=== PATIENT | female | born 1945 | race African-American/Black ===

== ENCOUNTER 2017-08-18 12:22 | Inpatient (IN) ==
[2017-08-18] MEDS ORDERED: ALBUTEROL/IPRATROPIUM 3 ML NEB RESP TX STA (15:08)
[2017-08-18] MEDS ORDERED: ASPIRIN 325 MG TABLET PO STA (15:25)
[2017-08-18] MEDS ORDERED: cefTRIAXone 1,000 MG in SODIUM CHLORIDE 0.9% 100 ML IV STA (15:25)
[2017-08-18] MEDS ORDERED: ONDANSETRON 4 MG/2 ML VIAL IV STA (15:25)
[2017-08-18] MEDS ORDERED: MORPHINE 2 MG/1 ML SYRINGE IV STA (15:25)
[2017-08-18] MEDS ORDERED: FUROSEMIDE 100 MG/10 ML VIAL IV STA (15:25)
[2017-08-18] MEDS ORDERED: methylPREDNISolone SOD SUC 125 MG/2 ML VIAL IV STA (15:25)
[2017-08-18] MEDS ORDERED: ALBUTEROL NEB SOLN 5 MG/ML 20 ML/BOTTLE RESP TX SCH (15:30)
[2017-08-18] MEDS ORDERED: FUROSEMIDE 20 MG/2 ML VIAL IV STA (15:47)
[2017-08-18 15:54] LABS: ABG Base Excess 1.1 MMOL/L (-2.5-2.5); ABG HCO3 25.4 MMOL/L (20-26); ABG Oxygen Saturation 99.4 % (95-100); ABG PCO2 45.3 MM HG (35-48); ABG PH 7.377 (7.35-7.45); ABG TCO2 23.9 MMOL/L (23-27)
[2017-08-18] MEDS ORDERED: ONDANSETRON 4 MG/2 ML VIAL ONE (16:13)
[2017-08-18] MEDS ORDERED: methylPREDNISolone SOD SUC 125 MG/2 ML VIAL ONE (16:13)
[2017-08-18] MEDS ORDERED: ASPIRIN 325 MG TABLET ONE (16:13)
[2017-08-18] MEDS ORDERED: MORPHINE 4 MG/1 ML VIAL ONE (16:13)
[2017-08-18] MEDS ORDERED: FUROSEMIDE 20 MG/2 ML VIAL ONE (16:13)
[2017-08-18] MEDS ORDERED: cefTRIAXone 1,000 MG VIAL ONE (16:13)
[2017-08-18 16:34] LABS: Basophils % 0.6 % (0.0-0.8); Eosinophils # 0.3 10*3/uL (0.0-0.87); Eosinophils % 4.5 % (0.00-10.9); Hematocrit 36.9 VOL% (35.7-47.0); Hemoglobin 11.5 GM/DL (12.0-16.0); Immature Granulocytes % 0.2 %; Immature Granulocytes Absolute 0.01 #; Lymphocytes # 2.2 10*3/uL (1.4-4.0); Lymphocytes % 35.6 % (21.3-54.2); Mean Corpuscular HGB Conc 31.2 GM/DL (32-36); Mean Corpuscular Hemoglobin 26 PG (27-34); Mean Corpuscular Volume 84.4 FL (87-102); Monocytes # 0.3 10*3/uL (0.11-0.8); Monocytes % 5.5 % (1.7-12.7); Neutrophils # 3.3 10*3/uL (1.4-7.4); Neutrophils % 53.6 % (38.7-73.9); Platelet Count 216 T/CUMM (130-400); Red Blood Count 4.37 MC/CUMM (3.8-5.5); Red Cell Distribution Width 15.6 % (9.3-17.3); White Blood Count 6.2 T/CUMM (4-12)
[2017-08-18 16:55] LABS: Alanine Aminotransferase 11 U/L (13-56); Albumin 3.5 G/DL (3.4-5.0); Alkaline Phosphatase 80 U/L (45-117); Aspartate Amino Transferase 18 U/L (0-37); Bilirubin,Total < 0.39 MG/DL (0.2-1.0); Blood Urea Nitrogen 11 MG/DL (7-18); Calcium 9.1 MG/DL (8.5-10.1); Glucose 75 MG/DL (74-106); Osmolality,Calculated 272.7 MOS/KG (273-304); Potassium 5.2 MMOL/L (3.5-5.1); Sodium 138 MMOL/L (136-145); Total Protein 7.9 G/DL (6.4-8.3); Troponin I Only < 0.015 NG/ML (0.00-0.045)
[2017-08-18 16:58] LABS: PT Patient Result 10.4 SECS
[2017-08-18 17:13] LABS: Apearance,Urine CLEAR (Clear); Bacteria,Urine Occasional /HPF (Few); Bilirubin,Urine Negative (Negative); Blood, Urine Negative (Negative); Glucose,Urine (UA) Negative (Negative); Ketones,Urine Negative (Negative); Mucus,Urine Occasional /LPF (Occasional); Nitrite,Urine Negative (Negative); Protein,Urine Negative; RBC,Urine 1 /HPF (0-4); Urine Color Straw (Yellow); Urine Specific Gravity 1.011 (1.001-1.035); Urine Urobilinogen < 2.0 EU/DL (0.2-1.0); WBC,Urine <1 /HPF (0-6)
[2017-08-18] MEDS ORDERED: ACETAMINOPHEN 325 MG TABLET PO PRN (17:39)
[2017-08-18] MEDS ORDERED: ALBUTEROL 2.5 MG/3 ML NEB RESP TX PRN (17:42)
[2017-08-18] MEDS: FLUTICASONE/SALMETEROL 500-50 DISKUS 14 DOSE INH SCH (21:17)
[2017-08-18] MEDS: MAGNESIUM OXIDE 400 MG TABLET PO SCH (21:17)
[2017-08-18] MEDS: ATORVASTATIN 40 MG TABLET PO SCH (21:17)
[2017-08-18] MEDS: MONTELUKAST 10 MG TABLET PO SCH (21:17)
[2017-08-18] MEDS: FAMOTIDINE 20 MG TABLET PO SCH (21:17)
[2017-08-18] MEDS: CARVEDILOL 12.5 MG TABLET PO SCH (21:17)
[2017-08-18] MEDS: methylPREDNISolone SOD SUC 125 MG/2 ML VIAL IV SCH (21:18)
[2017-08-19] MEDS ORDERED: GLUCAGON 1 MG VIAL IM PRN (00:08)
[2017-08-19] MEDS ORDERED: DEXTROSE 50% 25 GM/50 ML VIAL IV PRN (00:08)
[2017-08-19] MEDS: ALBUTEROL/IPRATROPIUM 3 ML NEB RESP TX SCH ×4 (00:24→18:59)
[2017-08-19] MEDS: methylPREDNISolone SOD SUC 125 MG/2 ML VIAL IV SCH ×2 (03:41→10:20)
[2017-08-19 06:39] LABS: Basophils % 0.2 % (0.0-0.8); Hematocrit 32.1 VOL% (35.7-47.0); Hemoglobin 10.3 GM/DL (12.0-16.0); Immature Granulocytes % 0.4 %; Immature Granulocytes Absolute 0.02 #; Lymphocytes # 0.9 10*3/uL (1.4-4.0); Lymphocytes % 19.2 % (21.3-54.2); Mean Corpuscular HGB Conc 32.1 GM/DL (32-36); Mean Corpuscular Hemoglobin 26 PG (27-34); Mean Corpuscular Volume 82.1 FL (87-102); Mean Platelet Volume 9.8 FL (9.6-12.0); Monocytes % 0.6 % (1.7-12.7); Neutrophils # 3.8 10*3/uL (1.4-7.4); Neutrophils % 79.6 % (38.7-73.9); Platelet Count 258 T/CUMM (130-400); Red Blood Count 3.91 MC/CUMM (3.8-5.5); Red Cell Distribution Width 15.4 % (9.3-17.3); White Blood Count 4.8 T/CUMM (4-12)
[2017-08-19 07:05] LABS: Calcium 8.9 MG/DL (8.5-10.1); Osmolality,Calculated 278.8 MOS/KG (273-304); Potassium 4.4 MMOL/L (3.5-5.1)
[2017-08-19] MEDS: INSULIN REGULAR 100 UNIT/ML SUBCUT SCH ×4 (07:54→21:02)
[2017-08-19] MEDS: FAMOTIDINE 20 MG TABLET PO SCH ×2 (10:25→21:02)
[2017-08-19] MEDS: FLUTICASONE/SALMETEROL 500-50 DISKUS 14 DOSE INH SCH ×2 (10:25→21:02)
[2017-08-19] MEDS: MAGNESIUM OXIDE 400 MG TABLET PO SCH ×2 (10:25→21:01)
[2017-08-19] MEDS: DILTIAZEM CD 120 MG CAPSULE PO SCH (10:25)
[2017-08-19] MEDS: CARVEDILOL 12.5 MG TABLET PO SCH ×2 (10:25→18:13)
[2017-08-19] MEDS: SOLIFENACIN 5 MG TABLET PO SCH (10:25)
[2017-08-19] MEDS: LEVOFLOXACIN INJ 500 MG in PREMIX 1 EACH IV SCH (10:25)
[2017-08-19] MEDS: LISINOPRIL 20 MG TABLET PO SCH (10:26)
[2017-08-19] MEDS: ASPIRIN EC 81 MG TABLET PO SCH (10:26)
[2017-08-19] MEDS: CALCIUM (CARBONATE) 500 MG TABLET PO SCH (10:26)
[2017-08-19] MEDS: FUROSEMIDE 20 MG TABLET PO SCH (10:26)
[2017-08-19] MEDS: methylPREDNISolone SOD SUC 40 MG/1 ML VIAL IV SCH ×3 (10:26→22:40)
[2017-08-19] MEDS: ATORVASTATIN 40 MG TABLET PO SCH (21:01)
[2017-08-19] MEDS: MONTELUKAST 10 MG TABLET PO SCH (21:01)
[2017-08-20] MEDS: ALBUTEROL/IPRATROPIUM 3 ML NEB RESP TX SCH ×4 (01:10→19:30)
[2017-08-20] MEDS: methylPREDNISolone SOD SUC 40 MG/1 ML VIAL IV SCH (05:26)
[2017-08-20 06:16] LABS: Hematocrit 30.1 VOL% (35.7-47.0); Hemoglobin 9.7 GM/DL (12.0-16.0); Immature Granulocytes % 0.5 %; Immature Granulocytes Absolute 0.04 #; Lymphocytes % 12.6 % (21.3-54.2); Mean Corpuscular HGB Conc 32.2 GM/DL (32-36); Mean Corpuscular Hemoglobin 27 PG (27-34); Mean Corpuscular Volume 82.2 FL (87-102); Mean Platelet Volume 10.4 FL (9.6-12.0); Monocytes # 0.2 10*3/uL (0.11-0.8); Monocytes % 2.7 % (1.7-12.7); Neutrophils # 6.8 10*3/uL (1.4-7.4); Neutrophils % 84.2 % (38.7-73.9); Platelet Count 271 T/CUMM (130-400); Red Blood Count 3.66 MC/CUMM (3.8-5.5); Red Cell Distribution Width 15.2 % (9.3-17.3); White Blood Count 8.1 T/CUMM (4-12)
[2017-08-20 06:55] LABS: Calcium 8.6 MG/DL (8.5-10.1); Osmolality,Calculated 284.7 MOS/KG (273-304); Potassium 4.1 MMOL/L (3.5-5.1)
[2017-08-20] MEDS: LISINOPRIL 20 MG TABLET PO SCH (09:05)
[2017-08-20] MEDS: DILTIAZEM CD 120 MG CAPSULE PO SCH (09:05)
[2017-08-20] MEDS: SOLIFENACIN 5 MG TABLET PO SCH (09:05)
[2017-08-20] MEDS: MAGNESIUM OXIDE 400 MG TABLET PO SCH ×2 (09:05→20:40)
[2017-08-20] MEDS: FAMOTIDINE 20 MG TABLET PO SCH ×2 (09:05→20:40)
[2017-08-20] MEDS: INSULIN REGULAR 100 UNIT/ML SUBCUT SCH ×4 (09:06→20:40)
[2017-08-20] MEDS: ASPIRIN EC 81 MG TABLET PO SCH (09:06)
[2017-08-20] MEDS: FUROSEMIDE 20 MG TABLET PO SCH (09:06)
[2017-08-20] MEDS: CALCIUM (CARBONATE) 500 MG TABLET PO SCH (09:06)
[2017-08-20] MEDS: CARVEDILOL 12.5 MG TABLET PO SCH ×2 (09:06→17:25)
[2017-08-20] MEDS: FLUTICASONE/SALMETEROL 500-50 DISKUS 14 DOSE INH SCH ×2 (09:10→20:44)
[2017-08-20] MEDS ORDERED: methylPREDNISolone SOD SUC 40 MG/1 ML VIAL IV SCH (10:00)
[2017-08-20] MEDS: LEVOFLOXACIN INJ 500 MG in PREMIX 1 EACH IV SCH (10:29)
[2017-08-20] MEDS: ATORVASTATIN 40 MG TABLET PO SCH (18:48)
[2017-08-20] MEDS: MONTELUKAST 10 MG TABLET PO SCH (18:48)
[2017-08-21] MEDS: ALBUTEROL/IPRATROPIUM 3 ML NEB RESP TX SCH ×4 (01:58→20:21)
[2017-08-21] MEDS: FUROSEMIDE 20 MG TABLET PO SCH (09:10)
[2017-08-21] MEDS: DILTIAZEM CD 120 MG CAPSULE PO SCH (09:10)
[2017-08-21] MEDS: SOLIFENACIN 5 MG TABLET PO SCH (09:10)
[2017-08-21] MEDS: MAGNESIUM OXIDE 400 MG TABLET PO SCH ×2 (09:11→21:03)
[2017-08-21] MEDS: LISINOPRIL 20 MG TABLET PO SCH (09:11)
[2017-08-21] MEDS: ASPIRIN EC 81 MG TABLET PO SCH (09:11)
[2017-08-21] MEDS: predniSONE 20 MG TABLET PO SCH (09:11)
[2017-08-21] MEDS: CARVEDILOL 12.5 MG TABLET PO SCH ×3 (09:11→17:55)
[2017-08-21] MEDS: FAMOTIDINE 20 MG TABLET PO SCH ×2 (09:11→21:03)
[2017-08-21] MEDS: CALCIUM (CARBONATE) 500 MG TABLET PO SCH (09:11)
[2017-08-21] MEDS: FLUTICASONE/SALMETEROL 500-50 DISKUS 14 DOSE INH SCH ×2 (09:12→21:03)
[2017-08-21] MEDS: INSULIN REGULAR 100 UNIT/ML SUBCUT SCH ×4 (09:12→21:04)
[2017-08-21] MEDS: LEVOFLOXACIN INJ 500 MG in PREMIX 1 EACH IV SCH (10:56)
[2017-08-21] MEDS: ATORVASTATIN 40 MG TABLET PO SCH (18:18)
[2017-08-21] MEDS: MONTELUKAST 10 MG TABLET PO SCH (18:18)
[2017-08-21] MEDS ORDERED: INSULIN GLARGINE 100 UNIT/ML SUBCUT SCH (21:00)
[2017-08-22 05:57] LABS: Basophils % 0.1 % (0.0-0.8); Eosinophils % 0.4 % (0.00-10.9); Hematocrit 30.4 VOL% (35.7-47.0); Hemoglobin 9.9 GM/DL (12.0-16.0); Immature Granulocytes % 0.6 %; Immature Granulocytes Absolute 0.05 #; Lymphocytes # 2.3 10*3/uL (1.4-4.0); Lymphocytes % 30.3 % (21.3-54.2); Mean Corpuscular HGB Conc 32.6 GM/DL (32-36); Mean Corpuscular Hemoglobin 26 PG (27-34); Mean Corpuscular Volume 80.4 FL (87-102); Mean Platelet Volume 10.1 FL (9.6-12.0); Monocytes # 0.8 10*3/uL (0.11-0.8); Monocytes % 10.8 % (1.7-12.7); Neutrophils # 4.5 10*3/uL (1.4-7.4); Neutrophils % 57.8 % (38.7-73.9); Platelet Count 293 T/CUMM (130-400); Red Blood Count 3.78 MC/CUMM (3.8-5.5); White Blood Count 7.7 T/CUMM (4-12)
[2017-08-22 06:16] LABS: Calcium 8.7 MG/DL (8.5-10.1); Osmolality,Calculated 281.4 MOS/KG (273-304); Potassium 3.7 MMOL/L (3.5-5.1)
[2017-08-22] MEDS: ALBUTEROL/IPRATROPIUM 3 ML NEB RESP TX SCH ×2 (07:15)
[2017-08-22] MEDS: INSULIN REGULAR 100 UNIT/ML SUBCUT SCH ×2 (07:41→12:50)
[2017-08-22] MEDS ORDERED: LISINOPRIL 20 MG TABLET PO SCH (09:00)
[2017-08-22] MEDS ORDERED: LEVOFLOXACIN 250 MG TABLET PO SCH (09:00)
[2017-08-22] MEDS: FLUTICASONE/SALMETEROL 500-50 DISKUS 14 DOSE INH SCH (09:08)
[2017-08-22] MEDS: SOLIFENACIN 5 MG TABLET PO SCH (09:08)
[2017-08-22] MEDS: FUROSEMIDE 20 MG TABLET PO SCH (09:09)
[2017-08-22] MEDS: DILTIAZEM CD 120 MG CAPSULE PO SCH (09:09)
[2017-08-22] MEDS: predniSONE 20 MG TABLET PO SCH (09:10)
[2017-08-22] MEDS: CARVEDILOL 12.5 MG TABLET PO SCH (09:10)
[2017-08-22] MEDS: FAMOTIDINE 20 MG TABLET PO SCH (09:10)
[2017-08-22] MEDS: CALCIUM (CARBONATE) 500 MG TABLET PO SCH (09:10)
[2017-08-22] MEDS: MAGNESIUM OXIDE 400 MG TABLET PO SCH (09:10)
[2017-08-22] MEDS: ASPIRIN EC 81 MG TABLET PO SCH (09:11)
[2017-08-22 11:29] VITALS: BP 146/90
== END 2017-08-22 14:00 | disposition home or self-care (01) | DRG 203 ==
LOC: N.ED 12:22 → N.EDINP 17:10 → SUATTDRO 17:10 → N.EDINP 18:30 → N.4E 18:52
PROVIDERS: ADMIT Internal Medicine Infectious Disease; ATTEND Internal Medicine

== ENCOUNTER 2018-02-03 13:26 | Inpatient (IN) ==
[2018-02-03 14:45] LABS: Basophils # 0.1 10*3/uL (0.0-0.2); Basophils % 0.9 % (0.0-0.8); Eosinophils # 0.5 10*3/uL (0.0-0.87); Eosinophils % 8.2 % (0.00-10.9); Hematocrit 36.7 VOL% (35.7-47.0); Hemoglobin 11.7 GM/DL (12.0-16.0); Immature Granulocytes % 0.2 %; Immature Granulocytes Absolute 0.01 #; Lymphocytes # 2.2 10*3/uL (1.4-4.0); Lymphocytes % 39.2 % (21.3-54.2); Mean Corpuscular HGB Conc 31.9 GM/DL (32-36); Mean Corpuscular Hemoglobin 26 PG (27-34); Mean Corpuscular Volume 80.7 FL (87-102); Mean Platelet Volume 10.1 FL (9.6-12.0); Monocytes # 0.5 10*3/uL (0.11-0.8); Monocytes % 8.6 % (1.7-12.7); Neutrophils # 2.5 10*3/uL (1.4-7.4); Neutrophils % 42.9 % (38.7-73.9); Platelet Count 322 T/CUMM (130-400); Red Blood Count 4.55 MC/CUMM (3.8-5.5); Red Cell Distribution Width 15.9 % (9.3-17.3); White Blood Count 5.7 T/CUMM (4-12)
[2018-02-03 14:53] LABS: PT Patient Result 10.7 SECS; Partial Thromboplastin Time 27.4 SECS (0-40)
[2018-02-03] MEDS ORDERED: LABETALOL 20 MG/4 ML SYRINGE IV ONE (14:58)
[2018-02-03] MEDS ORDERED: LABETALOL 20 MG/4 ML SYRINGE IV STA ×2 (15:05→15:42)
[2018-02-03 15:21] LABS: Alanine Aminotransferase 15 U/L (13-56); Albumin 3.5 G/DL (3.4-5.0); Alkaline Phosphatase 100 U/L (45-117); Aspartate Amino Transferase 14 U/L (0-37); Bilirubin,Total < 0.39 MG/DL (0.2-1.0); Blood Urea Nitrogen 12 MG/DL (7-18); Calcium 9.2 MG/DL (8.5-10.1); Glucose 76 MG/DL (74-106); Osmolality,Calculated 277.4 MOS/KG (273-304); Potassium 4.4 MMOL/L (3.5-5.1); Sodium 140 MMOL/L (136-145); Total Protein 7.9 G/DL (6.4-8.3)
[2018-02-03 16:37] LABS: Apearance,Urine CLEAR (Clear); Bilirubin,Urine Negative (Negative); Blood, Urine Negative (Negative); Glucose,Urine (UA) Negative (Negative); Ketones,Urine Negative (Negative); Mucus,Urine Occasional /LPF (Occasional); Nitrite,Urine Negative (Negative); Protein,Urine Negative; Urine Color Straw (Yellow); Urine Specific Gravity 1.011 (1.001-1.035); Urine Urobilinogen < 2.0 EU/DL (0.2-1.0); WBC,Urine <1 /HPF (0-6)
[2018-02-03 16:42] LABS: Barbiturates Screen,Urine Negative (Negative); Benzodiazepines Screen,Urine Negative (Negative); Cannabinoid Screen,Urine Negative (Negative); Opiate Screen,Urine Negative (Negative); Phencyclidine Screen,Urine Negative (Negative)
[2018-02-03] MEDS ORDERED: ASPIRIN EC 325 MG TABLET PO STA (18:26)
[2018-02-03] MEDS ORDERED: DEXTROSE 50% 25 GM/50 ML VIAL IV PRN (18:26)
[2018-02-03] MEDS ORDERED: ALBUTEROL 2.5 MG/3 ML NEB RESP TX PRN (18:26)
[2018-02-03] MEDS ORDERED: LABETALOL 100 MG/20 ML VIAL IV PRN (18:26)
[2018-02-03] MEDS ORDERED: GLUCAGON 1 MG VIAL IM PRN (18:26)
[2018-02-03] MEDS ORDERED: ACETAMINOPHEN 325 MG TABLET PO PRN (18:26)
[2018-02-03] MEDS ORDERED: ONDANSETRON 4 MG/2 ML VIAL IV PRN (18:26)
[2018-02-03] MEDS ORDERED: PNEUMOCOCCAL VACCINE (13 VALENT) 0.5 ML SYRINGE IM ONE (18:35)
[2018-02-03] MEDS: SODIUM CHLORIDE 0.45% 1,000 ML IV SCH (20:43)
[2018-02-03] MEDS: INSULIN REGULAR 100 UNIT/ML SUBCUT SCH (20:44)
[2018-02-03] MEDS: DIFLUPREDNATE 0.05% OPH EMUL 5 ML BOTTLE RIGHT EYE SCH (20:44)
[2018-02-03] MEDS: OFLOXACIN 0.3% OPH SOLN 10 ML BOTTLE RIGHT EYE SCH (20:44)
[2018-02-03] MEDS: KETOROLAC 0.5% OPH SOLN 3 ML BOTTLE RIGHT EYE SCH (20:44)
[2018-02-03] MEDS: hydrOXYzine HCL 10 MG TABLET PO SCH (20:45)
[2018-02-03] MEDS: ENOXAPARIN 40 MG/0.4 ML SYRINGE SUBCUT SCH (20:45)
[2018-02-04] MEDS: INSULIN REGULAR 100 UNIT/ML SUBCUT SCH ×4 (00:02→18:06)
[2018-02-04 00:06] LABS: Troponin I < 0.015 NG/ML (0.00-0.045)
[2018-02-04 01:49] LABS: Risk Ratio 1.91; VLDL CHOLESTEROL 11.8 MG/DL
[2018-02-04 04:21] LABS: Basophils # 0.1 10*3/uL (0.0-0.2); Basophils % 0.7 % (0.0-0.8); Eosinophils # 0.3 10*3/uL (0.0-0.87); Eosinophils % 3.8 % (0.00-10.9); Hematocrit 32.6 VOL% (35.7-47.0); Hemoglobin 10.3 GM/DL (12.0-16.0); Immature Granulocytes % 0.3 %; Immature Granulocytes Absolute 0.02 #; Lymphocytes # 3.4 10*3/uL (1.4-4.0); Lymphocytes % 44.6 % (21.3-54.2); Mean Corpuscular HGB Conc 31.6 GM/DL (32-36); Mean Corpuscular Hemoglobin 25 PG (27-34); Mean Corpuscular Volume 80.1 FL (87-102); Mean Platelet Volume 10.2 FL (9.6-12.0); Monocytes # 0.6 10*3/uL (0.11-0.8); Monocytes % 8.4 % (1.7-12.7); Neutrophils # 3.2 10*3/uL (1.4-7.4); Neutrophils % 42.2 % (38.7-73.9); Platelet Count 305 T/CUMM (130-400); Red Blood Count 4.07 MC/CUMM (3.8-5.5); Red Cell Distribution Width 15.8 % (9.3-17.3); White Blood Count 7.6 T/CUMM (4-12)
[2018-02-04 04:55] LABS: Calcium 8.6 MG/DL (8.5-10.1); Osmolality,Calculated 273.7 MOS/KG (273-304); Potassium 3.5 MMOL/L (3.5-5.1); Total Protein 6.9 G/DL (6.4-8.3); Troponin I < 0.015 NG/ML (0.00-0.045)
[2018-02-04] MEDS: MONTELUKAST 10 MG TABLET PO SCH (09:02)
[2018-02-04] MEDS: ASPIRIN EC 325 MG TABLET PO SCH (09:02)
[2018-02-04] MEDS: ATORVASTATIN 20 MG TABLET PO SCH (09:02)
[2018-02-04] MEDS: hydrOXYzine HCL 10 MG TABLET PO SCH ×3 (09:02→21:37)
[2018-02-04] MEDS: FLUTICASONE 50 MCG NASAL SPRAY 16 GM BOTTLE BOTH NARES SCH (09:03)
[2018-02-04] MEDS: SOLIFENACIN 5 MG TABLET PO SCH (09:03)
[2018-02-04] MEDS: OFLOXACIN 0.3% OPH SOLN 10 ML BOTTLE RIGHT EYE SCH ×4 (09:04→23:01)
[2018-02-04] MEDS: KETOROLAC 0.5% OPH SOLN 3 ML BOTTLE RIGHT EYE SCH ×4 (09:04→21:37)
[2018-02-04] MEDS: DIFLUPREDNATE 0.05% OPH EMUL 5 ML BOTTLE RIGHT EYE SCH ×4 (09:05→21:37)
[2018-02-04] MEDS: SODIUM CHLORIDE 0.45% 1,000 ML IV SCH ×2 (16:22→21:39)
[2018-02-04] MEDS ORDERED: hydrALAZINE 20 MG/1 ML VIAL IV PRN (17:21)
[2018-02-04] MEDS: ENOXAPARIN 40 MG/0.4 ML SYRINGE SUBCUT SCH (21:37)
[2018-02-04] MEDS: CARVEDILOL 12.5 MG TABLET PO SCH (21:37)
[2018-02-05] MEDS: INSULIN REGULAR 100 UNIT/ML SUBCUT SCH ×2 (00:05→05:29)
[2018-02-05] MEDS ORDERED: LISINOPRIL 20 MG TABLET PO SCH (09:00)
[2018-02-05] MEDS: ATORVASTATIN 20 MG TABLET PO SCH (09:21)
[2018-02-05] MEDS: SOLIFENACIN 5 MG TABLET PO SCH (09:21)
[2018-02-05] MEDS: CARVEDILOL 12.5 MG TABLET PO SCH (09:21)
[2018-02-05] MEDS: ASPIRIN EC 325 MG TABLET PO SCH (09:21)
[2018-02-05] MEDS: hydrOXYzine HCL 10 MG TABLET PO SCH (09:21)
[2018-02-05] MEDS: MONTELUKAST 10 MG TABLET PO SCH (09:21)
[2018-02-05] MEDS: FLUTICASONE 50 MCG NASAL SPRAY 16 GM BOTTLE BOTH NARES SCH (09:22)
[2018-02-05] MEDS: DIFLUPREDNATE 0.05% OPH EMUL 5 ML BOTTLE RIGHT EYE SCH (09:23)
[2018-02-05] MEDS: KETOROLAC 0.5% OPH SOLN 3 ML BOTTLE RIGHT EYE SCH (09:23)
[2018-02-05] MEDS: OFLOXACIN 0.3% OPH SOLN 10 ML BOTTLE RIGHT EYE SCH (09:24)
[2018-02-05 12:23] VITALS: BP 163/88
== END 2018-02-05 13:50 | disposition home health service (06) | DRG 69 ==
LOC: N.ED 13:26 → N.EDINP 17:08 → SUATTDRO 17:09 → N.TELES 17:34
PROVIDERS: ADMIT Internal Medicine; ATTEND Internal Medicine

== ENCOUNTER 2020-07-17 09:45 | Inpatient (IN) ==
[2020-07-17] MEDS ORDERED: DEXTROSE 50% 25 GM/50 ML VIAL IV PRN (12:59)
[2020-07-17] MEDS ORDERED: hydrALAZINE 20 MG/1 ML VIAL IV PRN (12:59)
[2020-07-17] MEDS ORDERED: GLUCAGON 1 MG VIAL IM PRN (12:59)
[2020-07-17] MEDS ORDERED: ONDANSETRON 4 MG/2 ML VIAL IV PRN (12:59)
[2020-07-17] MEDS ORDERED: MORPHINE 4 MG/1 ML VIAL IV PRN (12:59)
[2020-07-17] MEDS ORDERED: SODIUM CHLORIDE 0.9% 1,000 ML IV SCH (13:00)
[2020-07-17 13:51] LABS: Basophils % 0.1 % (0.0-0.8); Hemoglobin 12.5 GM/DL (12.0-16.0); Immature Granulocytes % 0.8 %; Immature Granulocytes Absolute 0.15 #; Lymphocytes # 0.6 10*3/uL (1.4-4.0); Lymphocytes % 3.2 % (21.3-54.2); Mean Corpuscular HGB Conc 32.1 GM/DL (32-36); Mean Corpuscular Volume 84.6 FL (87-102); Mean Platelet Volume 9.8 FL (9.6-12.0); Monocytes % 4.6 % (1.7-12.7); Neutrophils % 91.3 % (38.7-73.9); Platelet Count 236 T/CUMM (130-400); Red Blood Count 4.61 MC/CUMM (3.8-5.5); Red Cell Distribution Width 16.5 % (9.3-17.3)
[2020-07-17 14:13] LABS: Albumin 2.8 G/DL (3.4-5.0); Bilirubin,Total 1.4 MG/DL (0.2-1.0); Calcium 9.4 MG/DL (8.5-10.1); Osmolality,Calculated 276.8 MOS/KG (273-304); Potassium 4.1 MMOL/L (3.5-5.1)
[2020-07-17 14:16] LABS: Band Neutrophils 4 % (0-10); Eosinophils 1 % (0-10); Lymphocytes 3 % (20-55); Segmented Neutrophils 88 % (50-85); Total Cells Counted 100
[2020-07-17 14:17] LABS: Platelet Estimate Adequate
[2020-07-17] MEDS ORDERED: MAGNESIUM SULF RIDER 2 GM in PREMIX 1 EACH IV PRN (14:36)
[2020-07-17] MEDS ORDERED: MAGNESIUM SULF RIDER 4 GM in PREMIX 1 EACH IV PRN (14:36)
[2020-07-17] MEDS: HYDROmorphone 2 MG/1 ML VIAL IV PRN ×2 (16:21→21:08)
[2020-07-17] MEDS: LACTATED RINGERS 1,000 ML IV SCH ×2 (16:27→23:20)
[2020-07-17] MEDS: INSULIN LISPRO 100 UNIT/ML SUBCUT SCH (18:15)
[2020-07-18] MEDS: INSULIN LISPRO 100 UNIT/ML SUBCUT SCH ×5 (01:17→23:53)
[2020-07-18 05:39] LABS: Basophils % 0.2 % (0.0-0.8); Hematocrit 32.2 VOL% (35.7-47.0); Hemoglobin 10.3 GM/DL (12.0-16.0); Immature Granulocytes % 0.4 %; Immature Granulocytes Absolute 0.04 #; Lymphocytes # 1.4 10*3/uL (1.4-4.0); Lymphocytes % 13.7 % (21.3-54.2); Mean Corpuscular Volume 84.7 FL (87-102); Mean Platelet Volume 9.8 FL (9.6-12.0); Monocytes % 6.5 % (1.7-12.7); Neutrophils % 79.2 % (38.7-73.9); Platelet Count 214 T/CUMM (130-400); Red Cell Distribution Width 16.7 % (9.3-17.3); White Blood Count 10.4 T/CUMM (4-12)
[2020-07-18] MEDS: LACTATED RINGERS 1,000 ML IV SCH ×2 (05:43→16:42)
[2020-07-18] MEDS: HYDROmorphone 2 MG/1 ML VIAL IV PRN ×2 (05:44→22:08)
[2020-07-18 06:10] LABS: Albumin 2.4 G/DL (3.4-5.0); Bilirubin,Total 3.9 MG/DL (0.2-1.0); Calcium 8.7 MG/DL (8.5-10.1); Osmolality,Calculated 275.4 MOS/KG (273-304); Potassium 3.6 MMOL/L (3.5-5.1); Total Protein 6.2 G/DL (5.0-7.5)
[2020-07-18 06:16] LABS: Albumin 2.3 G/DL (3.4-5.0); Bilirubin,Direct 1.96 MG/DL (0.0-0.20); Bilirubin,Indirect 1.1 MG/DL (0.0-1.0); Bilirubin,Total 3.1 MG/DL (0.2-1.0); Total Protein 5.7 G/DL (5.0-7.5)
[2020-07-19 04:57] LABS: Basophils % 0.3 % (0.0-0.8); Hemoglobin 9.6 GM/DL (12.0-16.0); Immature Granulocytes % 0.5 %; Immature Granulocytes Absolute 0.03 #; Lymphocytes # 1.6 10*3/uL (1.4-4.0); Lymphocytes % 23.6 % (21.3-54.2); Mean Corpuscular Volume 83.3 FL (87-102); Mean Platelet Volume 9.7 FL (9.6-12.0); Monocytes % 7.3 % (1.7-12.7); Neutrophils % 68.3 % (38.7-73.9); Platelet Count 199 T/CUMM (130-400); Red Cell Distribution Width 16.2 % (9.3-17.3); White Blood Count 6.6 T/CUMM (4-12)
[2020-07-19 05:19] LABS: Albumin 2.3 G/DL (3.4-5.0); Bilirubin,Total 1.2 MG/DL (0.2-1.0); Calcium 8.3 MG/DL (8.5-10.1); Osmolality,Calculated 279.1 MOS/KG (273-304); Potassium 3.5 MMOL/L (3.5-5.1); Total Protein 6.1 G/DL (5.0-7.5)
[2020-07-19] MEDS: INSULIN LISPRO 100 UNIT/ML SUBCUT SCH ×3 (05:52→17:27)
[2020-07-19] MEDS ORDERED: LORazepam 2 MG/1 ML VIAL IV ONE (08:00)
[2020-07-19] MEDS: HYDROmorphone 2 MG/1 ML VIAL IV PRN (21:19)
[2020-07-20] MEDS: INSULIN LISPRO 100 UNIT/ML SUBCUT SCH ×4 (01:31→18:00)
[2020-07-20 05:19] LABS: Basophils % 0.2 % (0.0-0.8); Hematocrit 31.2 VOL% (35.7-47.0); Hemoglobin 9.9 GM/DL (12.0-16.0); Immature Granulocytes % 0.4 %; Immature Granulocytes Absolute 0.02 #; Lymphocytes # 1.4 10*3/uL (1.4-4.0); Lymphocytes % 25.5 % (21.3-54.2); Mean Corpuscular HGB Conc 31.7 GM/DL (32-36); Monocytes % 7.9 % (1.7-12.7); Platelet Count 209 T/CUMM (130-400); Red Blood Count 3.76 MC/CUMM (3.8-5.5); Red Cell Distribution Width 15.7 % (9.3-17.3); White Blood Count 5.4 T/CUMM (4-12)
[2020-07-20 05:55] LABS: Albumin 2.3 G/DL (3.4-5.0); Bilirubin,Total 1.7 MG/DL (0.2-1.0); Calcium 8.3 MG/DL (8.5-10.1); Osmolality,Calculated 275.4 MOS/KG (273-304); Potassium 3.3 MMOL/L (3.5-5.1); Total Protein 6.4 G/DL (5.0-7.5)
[2020-07-20] MEDS ORDERED: ALBUTEROL 0.63 MG/3 ML NEB RESP TX ONE (09:40)
[2020-07-20] MEDS: HYDROmorphone 2 MG/1 ML VIAL IV PRN (23:14)
[2020-07-21] MEDS: INSULIN LISPRO 100 UNIT/ML SUBCUT SCH ×4 (01:00→18:10)
[2020-07-21 05:47] LABS: Basophils % 0.4 % (0.0-0.8); Hematocrit 35.3 VOL% (35.7-47.0); Hemoglobin 11.1 GM/DL (12.0-16.0); Immature Granulocytes % 0.5 %; Immature Granulocytes Absolute 0.03 #; Lymphocytes # 2.4 10*3/uL (1.4-4.0); Lymphocytes % 43.1 % (21.3-54.2); Mean Corpuscular HGB Conc 31.4 GM/DL (32-36); Mean Corpuscular Volume 83.6 FL (87-102); Mean Platelet Volume 10.4 FL (9.6-12.0); Monocytes % 9.3 % (1.7-12.7); Neutrophils % 46.7 % (38.7-73.9); Platelet Count 262 T/CUMM (130-400); Red Blood Count 4.22 MC/CUMM (3.8-5.5); Red Cell Distribution Width 15.3 % (9.3-17.3); White Blood Count 5.6 T/CUMM (4-12)
[2020-07-21 06:03] LABS: PT Patient Result 10.3 SECS (9.8-11.9)
[2020-07-21 06:11] LABS: Calcium 8.5 MG/DL (8.5-10.1); Osmolality,Calculated 277.4 MOS/KG (273-304); Potassium 3.4 MMOL/L (3.5-5.1)
[2020-07-21] MEDS ORDERED: fentaNYL 100 MCG/2 ML VIAL ONE (07:24)
[2020-07-21] MEDS ORDERED: ROCURONIUM 50 MG/5 ML VIAL IV ONE (07:24)
[2020-07-21] MEDS ORDERED: LIDOCAINE 2% 5 ML VIAL ONE (07:24)
[2020-07-21] MEDS ORDERED: propofoL 200 MG/20 ML VIAL IV ONE (07:24)
[2020-07-21] MEDS ORDERED: SUCCINYLCHOLINE 200 MG/10 ML VIAL ONE (07:24)
[2020-07-21] MEDS ORDERED: ALBUTEROL 0.63 MG/3 ML NEB RESP TX ONE (07:55)
[2020-07-21] MEDS: LACTATED RINGERS 1,000 ML IV SCH (07:57)
[2020-07-21] MEDS ORDERED: INDOMETHACIN SUPP 50 MG SUPP RECTAL ONE (08:00)
[2020-07-21] MEDS ORDERED: ETOMIDATE 20 MG/10 ML VIAL IV ONE (08:01)
[2020-07-21] MEDS ORDERED: PHENYLEPHRINE 1 MG/10 ML SYRINGE IV ONE (09:25)
[2020-07-21] MEDS ORDERED: SEVOFLURANE 1 UNIT/15 MINUTE INH ONE (09:25)
[2020-07-21] MEDS ORDERED: ESMOLOL 100 MG/10 ML VIAL IV ONE (09:25)
[2020-07-21] MEDS ORDERED: METOPROLOL TARTRATE 5 MG/5 ML VIAL IV ONE (09:25)
[2020-07-21] MEDS ORDERED: POTASSIUM CHLORIDE 20 MEQ TABLET PO ONE (12:00)
[2020-07-21] MEDS: carvediloL 12.5 MG TABLET PO SCH (12:21)
[2020-07-21] MEDS: lisinopriL 20 MG TABLET PO SCH (12:21)
[2020-07-21] MEDS: ATORVASTATIN 20 MG TABLET PO SCH (15:46)
[2020-07-21] MEDS: hydrALAZINE 25 MG TABLET PO SCH ×2 (15:46→21:51)
[2020-07-21] MEDS: ASCORBIC ACID 500 MG TABLET PO SCH (21:51)
[2020-07-21] MEDS: POTASSIUM CHLORIDE 20 MEQ TABLET PO SCH (21:51)
[2020-07-22] MEDS: INSULIN LISPRO 100 UNIT/ML SUBCUT SCH ×4 (05:27→17:45)
[2020-07-22] MEDS: ALBUTEROL 0.63 MG/3 ML NEB RESP TX PRN (05:52)
[2020-07-22 06:05] LABS: Basophils % 0.6 % (0.0-0.8); Hematocrit 30.9 VOL% (35.7-47.0); Immature Granulocytes % 0.4 %; Immature Granulocytes Absolute 0.02 #; Lymphocytes # 2.1 10*3/uL (1.4-4.0); Lymphocytes % 42.3 % (21.3-54.2); Mean Corpuscular HGB Conc 32.4 GM/DL (32-36); Mean Corpuscular Volume 82.6 FL (87-102); Mean Platelet Volume 9.9 FL (9.6-12.0); Monocytes % 8.1 % (1.7-12.7); Neutrophils % 48.6 % (38.7-73.9); Platelet Count 241 T/CUMM (130-400); Red Blood Count 3.74 MC/CUMM (3.8-5.5); Red Cell Distribution Width 15.6 % (9.3-17.3); White Blood Count 5.1 T/CUMM (4-12)
[2020-07-22 06:25] LABS: Calcium 7.9 MG/DL (8.5-10.1); Osmolality,Calculated 280.1 MOS/KG (273-304); Potassium 3.9 MMOL/L (3.5-5.1)
[2020-07-22] MEDS: lisinopriL 20 MG TABLET PO SCH (08:18)
[2020-07-22] MEDS: POTASSIUM CHLORIDE 20 MEQ TABLET PO SCH ×2 (08:19→21:10)
[2020-07-22] MEDS: ASCORBIC ACID 500 MG TABLET PO SCH ×2 (08:19→21:10)
[2020-07-22] MEDS: carvediloL 12.5 MG TABLET PO SCH ×2 (08:19→16:12)
[2020-07-22] MEDS: ATORVASTATIN 20 MG TABLET PO SCH (08:19)
[2020-07-22] MEDS: HYDROmorphone 2 MG/1 ML VIAL IV PRN ×2 (08:20→19:26)
[2020-07-22] MEDS: hydrALAZINE 25 MG TABLET PO SCH ×3 (08:20→21:10)
[2020-07-22] MEDS: ENOXAPARIN 80 MG/0.8 ML SYRINGE SUBCUT SCH (13:28)
[2020-07-22] MEDS: LACTATED RINGERS 1,000 ML IV SCH (19:48)
[2020-07-23] MEDS: ENOXAPARIN 80 MG/0.8 ML SYRINGE SUBCUT SCH ×2 (00:13→10:56)
[2020-07-23] MEDS: INSULIN LISPRO 100 UNIT/ML SUBCUT SCH ×4 (00:13→17:44)
[2020-07-23 05:55] LABS: Basophils % 0.4 % (0.0-0.8); Hematocrit 33.4 VOL% (35.7-47.0); Hemoglobin 10.5 GM/DL (12.0-16.0); Immature Granulocytes % 0.6 %; Immature Granulocytes Absolute 0.03 #; Lymphocytes # 2.5 10*3/uL (1.4-4.0); Lymphocytes % 49.9 % (21.3-54.2); Mean Corpuscular HGB Conc 31.4 GM/DL (32-36); Mean Platelet Volume 11.4 FL (9.6-12.0); Monocytes % 7.1 % (1.7-12.7); Red Blood Count 3.93 MC/CUMM (3.8-5.5); Red Cell Distribution Width 15.8 % (9.3-17.3); White Blood Count 5.1 T/CUMM (4-12)
[2020-07-23 05:59] LABS: Platelet Count 160 T/CUMM (130-400)
[2020-07-23 06:37] LABS: Calcium 8.6 MG/DL (8.5-10.1); Osmolality,Calculated 266.1 MOS/KG (273-304); Potassium 4.7 MMOL/L (3.5-5.1)
[2020-07-23] MEDS: LACTATED RINGERS 1,000 ML IV SCH (08:22)
[2020-07-23] MEDS: hydrALAZINE 25 MG TABLET PO SCH ×3 (08:22→20:37)
[2020-07-23] MEDS: carvediloL 12.5 MG TABLET PO SCH ×2 (08:22→17:03)
[2020-07-23] MEDS: ASCORBIC ACID 500 MG TABLET PO SCH ×2 (08:22→20:37)
[2020-07-23] MEDS: lisinopriL 20 MG TABLET PO SCH (08:22)
[2020-07-23] MEDS: POTASSIUM CHLORIDE 20 MEQ TABLET PO SCH ×2 (08:22→20:38)
[2020-07-23] MEDS: ATORVASTATIN 20 MG TABLET PO SCH (08:22)
[2020-07-23 09:05] LABS: Anisocytosis 1+; Eosinophils 1 % (0-10); Lymphocytes 44 % (20-55); Macrocytosis 1+; Platelet Estimate Normal; Reactive Lymphocytes 2+; Segmented Neutrophils 49 % (50-85)
[2020-07-23 09:06] LABS: Total Cells Counted 100
[2020-07-23 09:20] LABS: Albumin 2.4 G/DL (3.4-5.0); Bilirubin,Direct 0.19 MG/DL (0.0-0.20); Bilirubin,Indirect 0.2 MG/DL (0.0-1.0); Bilirubin,Total 0.4 MG/DL (0.2-1.0); Total Protein 6.8 G/DL (5.0-7.5)
[2020-07-23] MEDS: ALBUTEROL 0.63 MG/3 ML NEB RESP TX PRN (11:10)
[2020-07-23] MEDS: HYDROmorphone 2 MG/1 ML VIAL IV PRN ×2 (11:20→23:10)
[2020-07-24] MEDS: INSULIN LISPRO 100 UNIT/ML SUBCUT SCH ×5 (00:38→23:46)
[2020-07-24] MEDS: HYDROmorphone 2 MG/1 ML VIAL IV PRN ×2 (04:38→21:09)
[2020-07-24 06:20] LABS: Basophils % 0.4 % (0.0-0.8); Hematocrit 33.9 VOL% (35.7-47.0); Hemoglobin 10.5 GM/DL (12.0-16.0); Immature Granulocytes % 0.6 %; Immature Granulocytes Absolute 0.03 #; Lymphocytes # 2.4 10*3/uL (1.4-4.0); Lymphocytes % 47.6 % (21.3-54.2); Mean Corpuscular Volume 84.5 FL (87-102); Mean Platelet Volume 9.9 FL (9.6-12.0); Monocytes % 10.7 % (1.7-12.7); Neutrophils % 40.7 % (38.7-73.9); Platelet Count 325 T/CUMM (130-400); Red Blood Count 4.01 MC/CUMM (3.8-5.5); Red Cell Distribution Width 15.8 % (9.3-17.3); White Blood Count 5.1 T/CUMM (4-12)
[2020-07-24 06:40] LABS: Calcium 8.3 MG/DL (8.5-10.1); Potassium 4.6 MMOL/L (3.5-5.1)
[2020-07-24 06:46] LABS: Hypochromasia 1+; Microcytosis 1+; Platelet Estimate Adequate
[2020-07-24 06:48] LABS: Calcium 8.6 MG/DL (8.5-10.1); Osmolality,Calculated 266.2 MOS/KG (273-304); Potassium 4.3 MMOL/L (3.5-5.1)
[2020-07-24] MEDS ORDERED: CLINDAMYCIN INJ 900 MG in PREMIX 1 EACH IV ONE (07:22)
[2020-07-24] MEDS ORDERED: INDOCYANINE GREEN 25 MG VIAL IV ONE (07:30)
[2020-07-24] MEDS: ASCORBIC ACID 500 MG TABLET PO SCH ×2 (08:36→21:02)
[2020-07-24] MEDS: POTASSIUM CHLORIDE 20 MEQ TABLET PO SCH ×2 (08:36→21:02)
[2020-07-24] MEDS: ATORVASTATIN 20 MG TABLET PO SCH (08:36)
[2020-07-24] MEDS: lisinopriL 20 MG TABLET PO SCH (08:36)
[2020-07-24] MEDS: hydrALAZINE 25 MG TABLET PO SCH ×3 (08:36→21:02)
[2020-07-24] MEDS: carvediloL 12.5 MG TABLET PO SCH ×2 (08:37→17:39)
[2020-07-24] MEDS ORDERED: BUPIVACAINE MPF 0.25% 30 ML VIAL ONE (09:35)
[2020-07-24] MEDS ORDERED: LIDOCAINE 1%/EPI INJ 20 ML VIAL ONE (09:36)
[2020-07-24] MEDS ORDERED: TISSUE ADHESIVE 1 EACH APPLICATOR TOP ONE (09:36)
[2020-07-24] MEDS ORDERED: fentaNYL 100 MCG/2 ML VIAL ONE (09:47)
[2020-07-24] MEDS: LACTATED RINGERS 1,000 ML IV SCH ×2 (10:10→13:42)
[2020-07-24] MEDS ORDERED: PHENYLEPHRINE 10 MG/1 ML VIAL IV ONE (10:32)
[2020-07-24] MEDS ORDERED: LIDOCAINE 2% 5 ML VIAL ONE (10:48)
[2020-07-24] MEDS ORDERED: ROCURONIUM 50 MG/5 ML VIAL IV ONE (10:48)
[2020-07-24] MEDS ORDERED: PHENYLEPHRINE 1 MG/10 ML SYRINGE IV ONE (10:48)
[2020-07-24] MEDS ORDERED: SODIUM CHLORIDE 0.9% 250 ML IV ONE (10:48)
[2020-07-24] MEDS ORDERED: propofoL 200 MG/20 ML VIAL IV ONE (10:48)
[2020-07-24] MEDS ORDERED: ONDANSETRON 4 MG/2 ML VIAL ONE (10:48)
[2020-07-24] MEDS ORDERED: SEVOFLURANE 1 UNIT/15 MINUTE INH ONE ×5 (10:51→11:08)
[2020-07-24] MEDS ORDERED: SUGAMMADEX 200 MG/2 ML VIAL IV ONE (11:04)
[2020-07-24] MEDS ORDERED: ONDANSETRON 4 MG/2 ML VIAL IV PRN (11:57)
[2020-07-24] MEDS ORDERED: HYDROmorphone 2 MG/1 ML VIAL IV PRN (11:57)
[2020-07-25] MEDS: HYDROmorphone 2 MG/1 ML VIAL IV PRN (02:05)
[2020-07-25] MEDS: INSULIN LISPRO 100 UNIT/ML SUBCUT SCH ×4 (06:18→23:54)
[2020-07-25 08:12] LABS: Basophils % 0.1 % (0.0-0.8); Hemoglobin 10.5 GM/DL (12.0-16.0); Immature Granulocytes % 0.6 %; Immature Granulocytes Absolute 0.07 #; Lymphocytes # 1.8 10*3/uL (1.4-4.0); Lymphocytes % 15.4 % (21.3-54.2); Mean Corpuscular HGB Conc 30.9 GM/DL (32-36); Mean Corpuscular Volume 85.6 FL (87-102); Mean Platelet Volume 10.1 FL (9.6-12.0); Monocytes % 5.1 % (1.7-12.7); Neutrophils % 78.8 % (38.7-73.9); Platelet Count 328 T/CUMM (130-400); Red Blood Count 3.97 MC/CUMM (3.8-5.5); Red Cell Distribution Width 16.1 % (9.3-17.3); White Blood Count 11.9 T/CUMM (4-12)
[2020-07-25 08:37] LABS: Calcium 8.5 MG/DL (8.5-10.1); Potassium 4.5 MMOL/L (3.5-5.1)
[2020-07-25 08:41] LABS: Albumin 2.5 G/DL (3.4-5.0); Bilirubin,Direct 0.28 MG/DL (0.0-0.20); Bilirubin,Indirect 0.8 MG/DL (0.0-1.0); Bilirubin,Total 1.1 MG/DL (0.2-1.0); Total Protein 6.1 G/DL (5.0-7.5)
[2020-07-25] MEDS: lisinopriL 20 MG TABLET PO SCH (09:18)
[2020-07-25] MEDS: ASCORBIC ACID 500 MG TABLET PO SCH ×2 (09:18→20:54)
[2020-07-25] MEDS: ATORVASTATIN 20 MG TABLET PO SCH (09:19)
[2020-07-25] MEDS: hydrALAZINE 25 MG TABLET PO SCH ×3 (09:19→20:53)
[2020-07-25] MEDS: carvediloL 12.5 MG TABLET PO SCH ×2 (09:19→16:06)
[2020-07-25] MEDS: POTASSIUM CHLORIDE 20 MEQ TABLET PO SCH ×2 (09:19→20:53)
[2020-07-25] MEDS ORDERED: KETOROLAC 30 MG/1 ML VIAL IV ONE (09:39)
[2020-07-25] MEDS ORDERED: HYDROmorphone 2 MG/1 ML VIAL IV PRN ×2 (09:39)
[2020-07-25] MEDS: LACTATED RINGERS 1,000 ML IV SCH (09:58)
[2020-07-25] MEDS ORDERED: KETOROLAC 30 MG/1 ML VIAL IM ONE (10:41)
[2020-07-25] MEDS: KETOROLAC 15 MG/1 ML VIAL IV SCH ×3 (10:56→22:10)
[2020-07-26] MEDS: KETOROLAC 15 MG/1 ML VIAL IV SCH ×2 (03:38→08:37)
[2020-07-26 05:52] LABS: Basophils % 0.1 % (0.0-0.8); Hematocrit 30.7 VOL% (35.7-47.0); Hemoglobin 9.3 GM/DL (12.0-16.0); Immature Granulocytes % 0.6 %; Immature Granulocytes Absolute 0.06 #; Lymphocytes # 1.4 10*3/uL (1.4-4.0); Lymphocytes % 14.7 % (21.3-54.2); Mean Corpuscular HGB Conc 30.3 GM/DL (32-36); Mean Platelet Volume 9.7 FL (9.6-12.0); Neutrophils % 77.6 % (38.7-73.9); Platelet Count 336 T/CUMM (130-400); Red Blood Count 3.61 MC/CUMM (3.8-5.5); Red Cell Distribution Width 16.2 % (9.3-17.3); White Blood Count 9.6 T/CUMM (4-12)
[2020-07-26 06:30] LABS: Potassium 5.1 MMOL/L (3.5-5.1)
[2020-07-26 06:34] LABS: Albumin 2.1 G/DL (3.4-5.0); Bilirubin,Direct 0.26 MG/DL (0.0-0.20); Bilirubin,Indirect 0.6 MG/DL (0.0-1.0); Bilirubin,Total 0.9 MG/DL (0.2-1.0); Total Protein 6.3 G/DL (5.0-7.5)
[2020-07-26] MEDS: INSULIN LISPRO 100 UNIT/ML SUBCUT SCH ×2 (06:34→12:02)
[2020-07-26] MEDS: LACTATED RINGERS 1,000 ML IV SCH (07:54)
[2020-07-26] MEDS: ATORVASTATIN 20 MG TABLET PO SCH (08:36)
[2020-07-26] MEDS: carvediloL 12.5 MG TABLET PO SCH (08:36)
[2020-07-26] MEDS: POTASSIUM CHLORIDE 20 MEQ TABLET PO SCH (08:36)
[2020-07-26] MEDS: ASCORBIC ACID 500 MG TABLET PO SCH (08:36)
[2020-07-26] MEDS: hydrALAZINE 25 MG TABLET PO SCH (08:36)
[2020-07-26] MEDS: lisinopriL 20 MG TABLET PO SCH (08:37)
[2020-07-26 11:47] VITALS: BP 125/46
== END 2020-07-26 12:23 | disposition home health service (06) | DRG 418 ==
LOC: N.5E 11:07 → SUATTDRO 11:07
PROVIDERS: ADMIT Internal Medicine; ATTEND Internal Medicine
PROC: ERCPWSP (ICD-10-PCS; 2020-07-21 08:35)

== ENCOUNTER 2020-10-09 15:22 | Observation (INO) ==
[2020-10-09] MEDS ORDERED: SODIUM CHLORIDE 0.9% 500 ML IV STA (16:07)
[2020-10-09 16:47] LABS: Basophils % 0.7 % (0.0-0.8); Hematocrit 37.5 VOL% (35.7-47.0); Hemoglobin 11.7 GM/DL (12.0-16.0); Immature Granulocytes % 0.4 %; Immature Granulocytes Absolute 0.02 #; Lymphocytes # 2.9 10*3/uL (1.4-4.0); Lymphocytes % 53.1 % (21.3-54.2); Mean Corpuscular HGB Conc 31.2 GM/DL (32-36); Mean Corpuscular Volume 84.8 FL (87-102); Mean Platelet Volume 9.7 FL (9.6-12.0); Monocytes % 8.2 % (1.7-12.7); Neutrophils % 37.6 % (38.7-73.9); Platelet Count 300 T/CUMM (130-400); Red Blood Count 4.42 MC/CUMM (3.8-5.5); Red Cell Distribution Width 15.3 % (9.3-17.3); White Blood Count 5.5 T/CUMM (4-12)
[2020-10-09 17:09] LABS: Alanine Aminotransferase 9 U/L (13-56); Albumin 3.3 G/DL (3.4-5.0); Alkaline Phosphatase 81 U/L (45-117); Aspartate Amino Transferase 8 U/L (0-37); Bilirubin,Total < 0.39 MG/DL (0.2-1.0); Blood Urea Nitrogen 14 MG/DL (7-18); Carbon Dioxide 31 MMOL/L (21-32); Estimated Glom Filtration Rate 89 ML/MIN; Glucose 71 MG/DL (74-106); Osmolality,Calculated 273.7 MOS/KG (273-304); Potassium 3.7 MMOL/L (3.5-5.1); Sodium 138 MMOL/L (136-145); Total Protein 7.9 G/DL (6.4-8.2)
[2020-10-09 17:15] LABS: PT Patient Result 10.9 SECS (10.5-12.0)
[2020-10-09] MEDS ORDERED: ASPIRIN 325 MG TABLET PO STA (17:36)
[2020-10-09 17:40] LABS: Hypochromasia 1+; Microcytosis 1+; Platelet Estimate Increased; Total Cells Counted 100
[2020-10-09] MEDS ORDERED: ONDANSETRON 4 MG/2 ML VIAL IV PRN (17:41)
[2020-10-09] MEDS ORDERED: DEXTROSE 50% 25 GM/50 ML VIAL IV PRN (17:41)
[2020-10-09] MEDS ORDERED: GLUCAGON 1 MG VIAL IM PRN (17:41)
[2020-10-09 17:42] LABS: Atypical Lymphocytes Few; Lymphocytes 57 % (20-55); Segmented Neutrophils 38 % (50-85)
[2020-10-09] MEDS ORDERED: hydrALAZINE 20 MG/1 ML VIAL IV PRN (18:14)
[2020-10-09] MEDS ORDERED: hydrALAZINE 20 MG/1 ML VIAL ONE (18:17)
[2020-10-09] MEDS ORDERED: ENOXAPARIN 40 MG/0.4 ML SYRINGE ONE (18:17)
[2020-10-09 18:21] LABS: Risk Ratio 2.87; Thyroid Stimulating Hormone 2.72 uIU/ml (0.358-3.74); VLDL CHOLESTEROL 31.6 MG/DL
[2020-10-09] MEDS: ENOXAPARIN 40 MG/0.4 ML SYRINGE SUBCUT SCH (18:22)
[2020-10-09] MEDS ORDERED: ALBUTEROL 2.5 MG/3 ML NEB RESP TX PRN (18:32)
[2020-10-09] MEDS: ACETAMINOPHEN 325 MG TABLET PO PRN (21:22)
[2020-10-09] MEDS: lisinopriL 20 MG TABLET PO SCH (21:22)
[2020-10-09] MEDS: FLUTICASONE PROPION SALMETEROL INH SCH (21:23)
[2020-10-09] MEDS: carvediloL 25 MG TABLET PO SCH (21:23)
[2020-10-09] MEDS: ATORVASTATIN 40 MG TABLET PO SCH (21:23)
[2020-10-10 05:52] LABS: Basophils % 0.7 % (0.0-0.8); Hematocrit 31.9 VOL% (35.7-47.0); Hemoglobin 10.2 GM/DL (12.0-16.0); Immature Granulocytes % 0.2 %; Immature Granulocytes Absolute 0.01 #; Lymphocytes # 2.3 10*3/uL (1.4-4.0); Lymphocytes % 51.1 % (21.3-54.2); Mean Corpuscular Volume 82.6 FL (87-102); Monocytes % 9.5 % (1.7-12.7); Neutrophils % 38.5 % (38.7-73.9); Platelet Count 238 T/CUMM (130-400); Red Blood Count 3.86 MC/CUMM (3.8-5.5); Red Cell Distribution Width 15.4 % (9.3-17.3); White Blood Count 4.4 T/CUMM (4-12)
[2020-10-10 06:16] LABS: Lymphocytes 62 % (20-55); Segmented Neutrophils 30 % (50-85); Total Cells Counted 100
[2020-10-10 06:17] LABS: Atypical Lymphocytes Few; Hypochromasia 1+; Microcytosis 1+; Platelet Estimate Adequate
[2020-10-10 06:25] LABS: Calcium 8.4 MG/DL (8.5-10.1); Osmolality,Calculated 276.4 MOS/KG (273-304); Potassium 3.5 MMOL/L (3.5-5.1)
[2020-10-10] MEDS ORDERED: LORazepam 2 MG/1 ML VIAL IV PRN (08:25)
[2020-10-10] MEDS ORDERED: lisinopriL 20 MG TABLET PO SCH (09:00)
[2020-10-10] MEDS: PANTOPRAZOLE 40 MG TABLET PO SCH (09:44)
[2020-10-10] MEDS: FLUTICASONE PROPION SALMETEROL INH SCH (09:44)
[2020-10-10] MEDS: carvediloL 25 MG TABLET PO SCH ×2 (09:44→21:09)
[2020-10-10] MEDS: ASPIRIN CHEW 81 MG TABLET PO SCH (09:44)
[2020-10-10] MEDS: DILTIAZEM CD 180 MG CAPSULE PO SCH (09:44)
[2020-10-10] MEDS: MONTELUKAST 10 MG TABLET PO SCH (09:44)
[2020-10-10] MEDS: ATORVASTATIN 40 MG TABLET PO SCH (21:09)
[2020-10-10] MEDS: ENOXAPARIN 40 MG/0.4 ML SYRINGE SUBCUT SCH (21:09)
[2020-10-11] MEDS: FLUTICASONE PROPION SALMETEROL INH SCH ×3 (00:38→08:29)
[2020-10-11 05:18] LABS: Basophils % 0.9 % (0.0-0.8); Hematocrit 31.5 VOL% (35.7-47.0); Hemoglobin 10.3 GM/DL (12.0-16.0); Immature Granulocytes % 0.2 %; Immature Granulocytes Absolute 0.01 #; Lymphocytes # 2.2 10*3/uL (1.4-4.0); Lymphocytes % 52.4 % (21.3-54.2); Mean Corpuscular HGB Conc 32.7 GM/DL (32-36); Mean Platelet Volume 10.2 FL (9.6-12.0); Monocytes % 8.7 % (1.7-12.7); Neutrophils % 37.8 % (38.7-73.9); Platelet Count 240 T/CUMM (130-400); Red Blood Count 3.84 MC/CUMM (3.8-5.5); Red Cell Distribution Width 15.1 % (9.3-17.3); White Blood Count 4.2 T/CUMM (4-12)
[2020-10-11 05:40] LABS: Lymphocytes 45 % (20-55); Segmented Neutrophils 48 % (50-85); Total Cells Counted 100
[2020-10-11 05:41] LABS: Platelet Estimate Normal
[2020-10-11 05:52] LABS: Calcium 8.7 MG/DL (8.5-10.1); Osmolality,Calculated 278.4 MOS/KG (273-304); Potassium 3.5 MMOL/L (3.5-5.1)
[2020-10-11] MEDS: ASPIRIN CHEW 81 MG TABLET PO SCH ×2 (08:21→08:29)
[2020-10-11] MEDS: PANTOPRAZOLE 40 MG TABLET PO SCH ×2 (08:21→08:30)
[2020-10-11] MEDS: carvediloL 25 MG TABLET PO SCH ×2 (08:22→08:29)
[2020-10-11] MEDS: lisinopriL 20 MG TABLET PO SCH ×2 (08:22→08:29)
[2020-10-11] MEDS: DILTIAZEM CD 180 MG CAPSULE PO SCH ×2 (08:22→08:29)
[2020-10-11] MEDS: MONTELUKAST 10 MG TABLET PO SCH ×2 (08:22→08:30)
[2020-10-11] MEDS: ACETAMINOPHEN 325 MG TABLET PO PRN (08:28)
[2020-10-11 11:12] VITALS: BP 127/66
== END 2020-10-11 14:37 | disposition home or self-care (01) ==
LOC: N.EDINP 15:22 → N.ED 15:22 → SUATTDRO 17:39 → N.5E 18:05
PROVIDERS: ADMIT Hospitalist; ATTEND Internal Medicine

== ENCOUNTER 2020-11-25 19:11 | Inpatient (IN) ==
[2020-11-25] MEDS ORDERED: SODIUM CHLORIDE 0.9% 500 ML IV STA (21:39)
[2020-11-25] MEDS ORDERED: MORPHINE 2 MG/1 ML SYRINGE IV STA (21:39)
[2020-11-25] MEDS ORDERED: ONDANSETRON 4 MG/2 ML VIAL IV STA (21:39)
[2020-11-25 22:30] LABS: Basophils % 0.3 % (0.0-0.8); Hemoglobin 12.4 GM/DL (12.0-16.0); Immature Granulocytes % 0.3 %; Immature Granulocytes Absolute 0.03 #; Lymphocytes # 1.8 10*3/uL (1.4-4.0); Lymphocytes % 17.7 % (21.3-54.2); Mean Corpuscular Volume 86.4 FL (87-102); Mean Platelet Volume 9.4 FL (9.6-12.0); Monocytes % 4.7 % (1.7-12.7); Platelet Count 262 T/CUMM (130-400); Red Blood Count 4.63 MC/CUMM (3.8-5.5); Red Cell Distribution Width 15.9 % (9.3-17.3)
[2020-11-25 23:10] LABS: Bacteria,Urine Moderate /HPF (Few); Bilirubin,Urine Negative (Negative); Blood, Urine Negative (Negative); Glucose,Urine (UA) Negative (Negative); Ketones,Urine Negative (Negative); Mucus,Urine Occasional /LPF (Occasional); Nitrite,Urine Positive (Negative); Protein,Urine Negative; RBC,Urine 2 /HPF (0-4); Urine Appearance Slightly Hazy (Clear); Urine Color Yellow (Yellow); Urine Urobilinogen < 2.0 EU/DL (0.2-1.0)
[2020-11-25 23:40] LABS: Alanine Aminotransferase < 9 U/L (13-56); Albumin 3.2 G/DL (3.4-5.0); Alkaline Phosphatase 81 U/L (45-117); Aspartate Amino Transferase 12 U/L (0-37); Bilirubin,Total < 0.39 MG/DL (0.20-1.00); Blood Urea Nitrogen 12 MG/DL (7-18); Calcium 9.2 MG/DL (8.5-10.1); Carbon Dioxide 23 MMOL/L (21-32); Estimated Glom Filtration Rate 101 ML/MIN; Glucose 146 MG/DL (74-106); Osmolality,Calculated 275.8 MOS/KG (273-304); Potassium 4.3 MMOL/L (3.5-5.1); Sodium 137 MMOL/L (136-145); Total Protein 7.4 G/DL (6.4-8.2)
[2020-11-26] MEDS ORDERED: metroNIDAZOLE INJ 500 MG/100 ML PREMIX IV STA (00:54)
[2020-11-26] MEDS ORDERED: cefTRIAXone 1,000 MG in SODIUM CHLORIDE 0.9% 100 ML IV STA (00:54)
[2020-11-26] MEDS ORDERED: ACETAMINOPHEN 325 MG TABLET PO PRN (00:57)
[2020-11-26] MEDS ORDERED: ONDANSETRON 4 MG/2 ML VIAL IV PRN (00:57)
[2020-11-26] MEDS: LACTATED RINGERS 1,000 ML IV SCH ×3 (02:00→17:06)
[2020-11-26] MEDS: metroNIDAZOLE INJ 500 MG/100 ML PREMIX IV SCH ×3 (08:51→18:26)
[2020-11-26] MEDS: PANTOPRAZOLE 40 MG TABLET PO SCH (10:47)
[2020-11-27] MEDS ORDERED: cefTRIAXone 1,000 MG in SODIUM CHLORIDE 0.9% 100 ML IV SCH (01:00)
[2020-11-27] MEDS: metroNIDAZOLE INJ 500 MG/100 ML PREMIX IV SCH ×2 (02:34→06:12)
[2020-11-27] MEDS: LACTATED RINGERS 1,000 ML IV SCH ×3 (03:47→16:00)
[2020-11-27] MEDS: PANTOPRAZOLE 40 MG TABLET PO SCH (08:11)
[2020-11-27] MEDS ORDERED: NON-FORMULARY MEDICATION (Umeclidinium [Incruse Ellipta] 62.5 mcg/actuation Blister With D INH SCH (09:00)
[2020-11-27] MEDS ORDERED: hydrALAZINE 20 MG/1 ML VIAL IV PRN (09:01)
[2020-11-27] MEDS: FLUTICASONE/SALMETEROL 250-50 DISKUS 14 DOSE INH SCH ×2 (10:04→20:31)
[2020-11-27] MEDS: METOPROLOL TARTRATE 5 MG/5 ML VIAL IV SCH ×4 (10:04→23:24)
[2020-11-27] MEDS ORDERED: GLUCAGON 1 MG VIAL IM PRN (15:39)
[2020-11-27] MEDS ORDERED: DEXTROSE 50% 25 GM/50 ML VIAL IV PRN (15:39)
[2020-11-27] MEDS: INSULIN LISPRO 100 UNIT/ML SUBCUT SCH ×2 (15:59→20:31)
[2020-11-27] MEDS ORDERED: LEVOFLOXACIN INJ 500 MG/100 ML PREMIX IV SCH (17:00)
[2020-11-27] MEDS: IPRATROPIUM 500 MCG/2.5 ML NEB RESP TX SCH (19:25)
[2020-11-27] MEDS: SULFAMETHOX/TRIMETHOPRIM 800-160 MG TABLET PO SCH (20:30)
[2020-11-28] MEDS: LACTATED RINGERS 1,000 ML IV SCH ×2 (01:04→08:05)
[2020-11-28 05:24] LABS: Basophils % 0.4 % (0.0-0.8); Eosinophils # 0.2 10*3/uL (0.0-0.87); Eosinophils % 2.1 % (0.00-10.9); Hematocrit 32.4 VOL% (35.7-47.0); Hemoglobin 10.4 GM/DL (12.0-16.0); Immature Granulocytes % 0.5 %; Immature Granulocytes Absolute 0.04 #; Lymphocytes # 2.3 10*3/uL (1.4-4.0); Mean Corpuscular HGB Conc 32.1 GM/DL (32-36); Mean Corpuscular Volume 82.9 FL (87-102); Mean Platelet Volume 9.7 FL (9.6-12.0); Monocytes % 11.2 % (1.7-12.7); Neutrophils % 55.8 % (38.7-73.9); Platelet Count 242 T/CUMM (130-400); Red Blood Count 3.91 MC/CUMM (3.8-5.5); Red Cell Distribution Width 15.1 % (9.3-17.3); White Blood Count 7.7 T/CUMM (4-12)
[2020-11-28 05:57] LABS: Albumin 2.5 G/DL (3.4-5.0); Bilirubin,Total 0.8 MG/DL (0.20-1.00); Calcium 8.6 MG/DL (8.5-10.1); Osmolality,Calculated 275.5 MOS/KG (273-304); Potassium 3.6 MMOL/L (3.5-5.1); Total Protein 6.3 G/DL (6.4-8.2)
[2020-11-28] MEDS: METOPROLOL TARTRATE 5 MG/5 ML VIAL IV SCH (07:18)
[2020-11-28] MEDS: INSULIN LISPRO 100 UNIT/ML SUBCUT SCH ×2 (07:28→11:36)
[2020-11-28] MEDS: IPRATROPIUM 500 MCG/2.5 ML NEB RESP TX SCH ×4 (07:28→11:00)
[2020-11-28] MEDS: PANTOPRAZOLE 40 MG TABLET PO SCH (08:17)
[2020-11-28] MEDS: SULFAMETHOX/TRIMETHOPRIM 800-160 MG TABLET PO SCH (08:17)
[2020-11-28] MEDS: FLUTICASONE/SALMETEROL 250-50 DISKUS 14 DOSE INH SCH (08:17)
[2020-11-28] MEDS ORDERED: IPRATROPIUM 0.03% NASAL SPRAY 30 ML BOTTLE BOTH NARES PRN (08:22)
[2020-11-28] MEDS ORDERED: ALBUTEROL 2.5 MG/3 ML NEB RESP TX PRN (08:22)
[2020-11-28] MEDS ORDERED: LOSARTAN 50 MG TABLET PO SCH (09:00)
[2020-11-28] MEDS ORDERED: FLUTICASONE 50 MCG NASAL SPRAY 16 GM BOTTLE BOTH NARES SCH (09:00)
[2020-11-28] MEDS ORDERED: ASPIRIN EC 325 MG TABLET PO SCH (09:00)
[2020-11-28] MEDS ORDERED: carvediloL 25 MG TABLET PO SCH (09:00)
[2020-11-28] MEDS ORDERED: lisinopriL 20 MG TABLET PO SCH (09:00)
[2020-11-28] MEDS ORDERED: DILTIAZEM CD 180 MG CAPSULE PO SCH (09:00)
[2020-11-28 11:36] VITALS: BP 148/73
[2020-11-28] MEDS ORDERED: ATORVASTATIN 40 MG TABLET PO SCH (21:00)
== END 2020-11-28 15:11 | disposition home health service (06) | DRG 389 ==
LOC: N.ED 19:11 → N.EDINP 11-26 00:57 → N.3E 11-26 08:50
PROVIDERS: ADMIT Surgery; ATTEND Surgery